=== PATIENT | male | born 1960 | race Native Hawaiian/Other Pacific Islander ===

== ENCOUNTER 2018-07-20 16:41 | Outpatient (CLI) | payer OTHER ==
[~2018-07-20 16:41] MED LIST: BUDE1AER5 INH; BYSTOLIC5 MG PO; DIAZ5TAB20 PO; FURO40TA93 PO; GABA300C2 PO; HYDR25TA60 PO; METH10TA2 PO; NEXIUM40 M1 PO; OXYCODONE HCL E20 MG PO; POT CHLORIDE10 ME1 OR; PROAIR HFA IN; SIMV40TA57 PO; SYMBICORT1 AE1 IN
[2018-07-20 17:26] LABS: PLATELET COUNT 283 K/uL (142-355); POTASSIUM 3.9 mmol/L (3.6-5.2)
== END 2018-07-20 19:14 | disposition home or self-care (01) ==
LOC: LAB 16:41
PROVIDERS: Dermatology
DX: Z79.899 Other long term (current) drug therapy (principal)
CPT/HCPCS: 36415; 80053; 82607; 82746; 84630; 85027

== ENCOUNTER 2018-09-26 15:10 | Outpatient (CLI) | payer OTHER | END 2018-09-26 19:22 | disposition home or self-care (01) | LOC: RAD 15:10 | DX: J20.9 Acute bronchitis, unspecified (principal) ==

== ENCOUNTER 2019-11-03 20:02 | Emergency (ER) | payer OTHER ==
[~2019-11-03] VITALS: Ht 182.9 cm; Wt 96.6 kg
[2019-11-03 20:46] LABS: PLATELET COUNT 280 K/uL (142-355)
[2019-11-03 20:59] LABS: POTASSIUM 3.6 mmol/L (3.6-5.2); SODIUM 140 mmol/L (136-145)
[2019-11-03 22:50] VITALS: BP 155/97; TEMP 98.6
== END 2019-11-03 22:50 | disposition home or self-care (01) ==
LOC: ED 20:02
PROVIDERS: Family Medicine
DX: R07.89 Other chest pain (principal); J40 Bronchitis, not specified as acute or chronic; Z20.828 Contact with and (suspected) exposure to other viral communicable diseases; F17.210 Nicotine dependence, cigarettes, uncomplicated
CPT/HCPCS: 80053; 81000; 82550; 83605; 84484; 85027; 85379; 87040; 87502; 87635; 87651; 93005; 99283; U0002

== ENCOUNTER 2020-03-22 11:22 | Outpatient (CLI) | payer OTHER | END 2020-03-22 22:21 | disposition home or self-care (01) | LOC: RAD 11:22 | PROVIDERS: ATTEND Nurse Practitioner | DX: R05 Cough (principal) ==

== ENCOUNTER 2020-04-03 09:44 | Emergency (ER) | payer OTHER ==
[~2020-04-03] VITALS: Ht 182.9 cm; Wt 96.6 kg
[2020-04-03 10:54] VITALS: BP 156/84; TEMP 100
== END 2020-04-03 10:54 | disposition home or self-care (01) ==
LOC: ED 09:44
PROC: 2W3CX1Z Immobilization of Right Lower Arm using Splint (ICD-10-PCS; principal; 2020-04-03)
DX: S62.114A Nondisplaced fracture of triquetrum [cuneiform] bone, right wrist, initial encounter for closed fracture (principal); W10.8XXA Fall (on) (from) other stairs and steps, initial encounter; Y92.89 Other specified places as the place of occurrence of the external cause
CPT/HCPCS: 96372; 99283; J1885

== ENCOUNTER 2020-04-15 13:01 | Outpatient (CLI) | payer OTHER | END 2020-04-15 19:47 | disposition home or self-care (01) | LOC: US 13:01 | PROVIDERS: ATTEND Nurse Practitioner | DX: R20.2 Paresthesia of skin (principal) ==

== ENCOUNTER 2020-12-16 09:04 | Outpatient (CLI) | payer OTHER | END 2020-12-16 21:42 | disposition home or self-care (01) | LOC: MRI 09:04 | PROVIDERS: ATTEND Orthopaedic Surgery | DX: M54.5 Low back pain (principal); M51.37 Other intervertebral disc degeneration, lumbosacral region; M48.061 Spinal stenosis, lumbar region without neurogenic claudication ==

== ENCOUNTER 2021-01-15 12:52 | Emergency (ER) | payer OTHER ==
[~2021-01-15] VITALS: Ht 182.9 cm; Wt 115.2 kg
[2021-01-15 13:00] VITALS: TEMP 98
[2021-01-15 15:55] VITALS: BP 154/75
== END 2021-01-15 15:55 | disposition home or self-care (01) ==
LOC: ED 12:52
DX: S50.812A Abrasion of left forearm, initial encounter (principal); S50.312A Abrasion of left elbow, initial encounter; S43.492A Other sprain of left shoulder joint, initial encounter; W17.89XA Other fall from one level to another, initial encounter; Y93.H9 Activity, other involving exterior property and land maintenance, building and construction; Y92.096 Garden or yard of other non-institutional residence as the place of occurrence of the external cause
CPT/HCPCS: 96372; 99283; J1885; J7040